=== PATIENT | female | born 1985 | race Caucasian/White ===

== ENCOUNTER 2017-12-25 18:38 | Emergency (ER) | payer BC ==
[2017-12-25] MEDS ORDERED: Diphtheria,Pertussis(Acell),Tetanus Vaccine 0.5 ML SDV IM ONE (19:19)
--- NOTE | 2017-12-25 19:50 | EDM.PDOC ---
ED HPI GENERAL MEDICAL PROBLEM - General Chief Complaint: General Stated Complaint: NEEDLE STICK Time Seen by Provider: 12/25/17 18:57 Source of Information: Reports: Patient History Limitations: Reports: No Limitations - History of Present Illness INITIAL COMMENTS - FREE TEXT/NARRATIVE: The patient presents with a needle stick to the right thumb. She was given a horse a [place] virus vaccine. She gave the injection and she was recapping the needle and she poked the tip of her right thumb. She is scheduled to get the tetanus vaccine at 30 weeks. She has no trouble with the baby. She has accidentally poked her hands before but because she was she wanted to get checked out. 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: - Past Surgical History Other HEENT Surgeries/Procedures: [place] teeth removal Social & Family History - Family History Family Medical History: Noncontributory - Tobacco Use Smoking Status *Q: Never Smoker - Recreational Drug Use Recreational Drug Use: No ED ROS GENERAL - Review of Systems Review Of Systems: See Below Constitutional: Reports: No Symptoms HEENT: Reports: No Symptoms Respiratory: Reports: No Symptoms Cardiovascular: Reports: No Symptoms Endocrine: Reports: No Symptoms GI/Abdominal: Reports: No Symptoms : Reports: No Symptoms Musculoskeletal: Reports: Other (Puncture wound to the right thumb) Skin: Reports: No Symptoms ED EXAM, GENERAL - Physical Exam Exam: See Below Exam Limited By: No Limitations General Appearance: Alert, No Apparent Distress Ears: Normal External Exam Nose: Normal Inspection Head: Atraumatic, Normocephalic Neck: Normal Inspection Respiratory/Chest: No Respiratory Distress Back Exam: Normal Inspection Extremities: Other (Puncture wound to the tip of her thumb) Course - Vital Signs Last Recorded V/S: Last Vital Signs Temp 97.7 F 12/25/17 18:48 Pulse 60 12/25/17 18:48 Resp 16 12/25/17 18:48 BP 124/77 12/25/17 18:48 Pulse Ox 98 12/25/17 18:48 - Orders/Labs/Meds Orders: Active Orders 24 hr Category Date Time Status Vaccines to be Administered [RC] PER UNIT ROUTINE Care 12/25/17 19:19 Active Meds: Medications Discontinued Medications Generic Name Dose Route Start Last Admin Trade Name Arnold PRN Reason Stop Dose Admin Diphtheria/Tetanus/Acell Pertussis 0.5 ml 12/25/17 19:19 12/25/17 19:28 Adacel IM 12/25/17 19:20 0.5 ml .ONCE ONE Administration - Re-Assessments/Exams Free Text/Narrative Re-Assessment/Exam: 12/25/17 19:46 I updated her tetanus. It appears the vaccine is a killed flavivirus chimera. I am not sure what other problems may come with it. I called poison control and they did not feel there was any concerns. I also called her local vet and her vet she uses for her horses down in [place] Dr Lamb and he had no concerns. I also talked with her OB doctor Dr Frausto and he had no concerns. heart tones were 144. I will discharge her home. Departure - Departure Time of Disposition: 19:50 Disposition: Home, Self-Care 01 Condition: Good Clinical Impression: Needle stick injury of finger Qualifiers: Encounter type: initial encounter Qualified Code(s): S61.239A - Puncture wound without foreign body of unspecified finger without damage to nail, initial encounter; W27.3XXA - Contact with needle (sewing), initial encounter - Discharge Information Referrals: Татьяна Grewal MD [Primary Care Provider] - Marquez Frausto MD [Physician] - Additional Instructions: Soak your thumb in warm soapy water 2 times per day and apply some antibiotic ointment after. Do this for 3 to 5 days. Please return if you notice any more redness, swelling, pain or drainage. Follow up with Dr Frausto. - My Orders Last 24 Hours: My Active Orders 12/25/17 19:19 Vaccines to be Administered [RC] PER UNIT ROUTINE - Assessment/Plan Last 24 Hours: My Active Orders 05/09/18 19:19 Vaccines to be Administered [RC] PER UNIT ROUTINE
== END 2017-12-25 20:00 | disposition home or self-care (01) ==
LOC: JD.ED 18:38
DX: S61.031A Puncture wound without foreign body of right thumb without damage to nail, initial encounter (principal); Z23 Encounter for immunization; W27.3XXA Contact with needle (sewing), initial encounter; Z79.899 Other long term (current) drug therapy
CPT/HCPCS: 90471; 90715; 99283; 99283-25

== ENCOUNTER 2018-04-02 07:04 | Inpatient (IN) | payer BC ==
--- NOTE | 2018-04-02 07:01 | PCM.LDHP ---
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
[2018-04-02] MEDS ORDERED: Ondansetron 4 MG/2 ML SDV IVPUSH PRN ×2 (08:15→14:12)
[2018-04-02] MEDS ORDERED: Oxytocin/Lactated Ringers 10 UNIT/1,000 ML BAG IV SCH ×2 (08:15→08:45)
[2018-04-02] MEDS ORDERED: Sodium Chloride 0.9% 10 ML Syringe FLUSH PRN (08:15)
[2018-04-02] MEDS ORDERED: Nalbuphine 20 MG/ML 1 ML Syringe IVPUSH PRN (08:15)
[2018-04-02] MEDS ORDERED: Ampicillin 2 GM in Sodium Chloride 0.9% 100 ML IV ONE (08:30)
[2018-04-02] MEDS: Lactated Ringers 1,000 ML IV SCH ×4 (08:38→17:00)
--- NOTE | 2018-04-02 13:08 | HP ---
DATE OF ADMISSION: 04/02/2018 ADMISSION DIAGNOSIS: 39 and 4/7th week intrauterine , elective induction of labor. HISTORY OF PRESENT ILLNESS: The patient is a 33-year-old, 1, para 0, white female with an MAT of 04/06/2018, placing her at 39 and 4/7th weeks gestational age, admitted for elective induction of labor. Procedure, risks, benefits, and alternatives of care including natural passage of tissue have been discussed with the patient. She appears understanding and wishes to proceed. GAS [place]OVER HISTORY: 1, para 0. MAT of 04/06/2018 as determined by certain last menstrual period occurring and starting on 06/30/2017, but supported by 4 ultrasounds done during the course of her care. She had menarche at age 13, cycles q.29 days with positive hCG on 08/01/2017. Her cycles are regular and she was not using any control at the time of conception. She denies any abnormal Pap smears or STDs in the past. Her course has been relatively unremarkable. She is planning on . She had an elevated 1-hour GTT but a normal 3-hour glucose tolerance test. She is desiring epidural in labor. She has had some problems with hemorrhoids, but these resolved. Her group B strep screen was positive.. Her [place] depression screen score at 20 weeks was 20. Tdap was done on 12/25/2017. course started on 09/10/2017 at 10 and 2/7th weeks. She was seen on a regular basis. Her weight gain was from 189.4 pounds to 209.4 pounds for 20 pounds increase. Vital signs are stable. Fundal height growth was appropriate. LABORATORY TESTING: In showed first laboratory test with A positive blood. Negative antibody screen. Hemoglobin is 13.2 g/dL. Platelets 289,000. Her Pap smear was negative. She is rubella immune. RPR is nonreactive. Urine culture was negative. Hepatitis B surface antigen HIV assays were both negative. Chlamydia and gonorrhea assays were both negative. Her second trimester laboratory testing showed a hemoglobin of 12.7 g/dL and platelets of 236,000. One-hour GTT was 134. Her 3-hour GTT was normal with 3 values as follows. Fasting blood sugar 80, 1-hour blood sugar 130, 2-hour blood sugar 108. She did have positive group B strep and is a candidate for group B strep prophylaxis in Labor and Delivery. ALLERGIES: None. CURRENT MEDICATIONS: 1. Hydrocortisone rectal cream 2.5% apply 3 times a day p.r.n. 2. vitamins 1 daily. PAST MEDICAL HISTORY: Depression treated with Paxil and Wellbutrin on and off. Actually reports more of an anxiety at this time. PAST SURGICAL HISTORY: [place] tooth extraction 2005. FAMILY HISTORY: Mother is alive and well. Does have adult onset diabetes and hypertension. Father is alive with macular degeneration. One brother with asthma and 1 half- sister who is alive and well. Maternal grandmother due to dementia. Maternal grandfather secondary to some type of cancer. Paternal grandmother with lung cancer history and paternal grandfather secondary to Alzheimer's. There is no significant history of , bleeding, blood clotting, or anesthesia problems in the family. SOCIAL HISTORY: The patient is , lives in [place]. 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 She does not use any significant amounts of alcohol, drugs, or tobacco. is Omar. REVIEW OF SYSTEMS: GENERAL: The patient has no concerns. Baby has been active. SKIN: Negative. RESPIRATORY/LUNGS: No shortness of breath or infectious symptoms. CARDIOVASCULAR: No chest pain or exercise intolerance. BREASTS: Changes associated with . The patient plans to breastfeed. GI: Negative. : Increased size of the uterus consistent with term . MUSCULOSKELETAL: Negative with exception of occasional edema in the lower extremities. NEUROLOGICAL: Negative. PHYSICAL EXAMINATION: GENERAL: This patient is a well-developed, well-nourished, pleasant female, stated age, in no acute distress. SKIN: Warm and dry without lesions. HEENT: Within normal limits. NECK: Within normal limits. BACK: Within normal limits. LUNGS: Clear with good breath sounds in all lung napier. BREASTS: Deferred and has been done at the first visit and found to be normal. ABDOMEN: Protuberant with with fundal height of 37+ cm. : Cervix is 1-2 cm, 75% effaced, soft, -3, mid position. EXTREMITIES: Normal with the exception of trace edema. NEUROLOGIC: Normal. ASSESSMENT: 1. 39 and 4/7th week intrauterine , admitted for elective induction of labor. 2. Group B strep positive status - candidate for group B strep prophylaxis with ampicillin per protocol. 3. Rubella immune. 4. Plans to breastfeed. 5. Okay with epidural in Labor and Delivery. PLAN: 1. Pitocin induction of labor with artificial rupture of membranes augmentation. Procedure, risks, benefits, alternatives of care including waiting for natural onset of labor all discussed with the patient. She appears to understand and wishes to proceed. 2. Epidural p.r.n. per the patient's desire. 3. Support decision. 4. Routine labor and delivery care. DARRION /[id number] JONATHAN
[2018-04-02] MEDS: Ampicillin 1 GM in Sodium Chloride 0.9% 100 ML IV SCH ×2 (14:00→18:10)
[2018-04-02] MEDS ORDERED: fentaNYL 100 MCG/2 ML SDV EPIDUR PRN (14:12)
[2018-04-02] MEDS ORDERED: ePHEDrine 50 MG/ML SDV IVPUSH PRN (14:12)
[2018-04-02] MEDS ORDERED: Bupivacaine/fentaNYL/NS 100 ML Bag EPIDUR SCH (14:15)
--- NOTE | 2018-04-02 15:11 | PCM.PREANE ---
Preanesthetic Assessment - Anesthesia/Transfusion/Family Hx Anesthesia History: Prior Anesthesia Without Reaction Family History of Anesthesia Reaction: No Transfusion History: No Prior Transfusion(s) Intubation History: Unknown - Review of Systems General: No Symptoms Pulmonary: No Symptoms Cardiovascular: No Symptoms Gastrointestinal: No Symptoms (GERD) Neurological: No Symptoms Other: Reports: Depression, Anxiety - Physical Assessment NPO Status Date: 04/02/18 NPO Status Time: 12:00 Pulse: 77 O2 Sat by Pulse Oximetry: 99 Respiratory Rate: 18 Blood Pressure: 124/79 Temperature: 36.7 C Vital Signs: Last Vital Signs Temp 36.7 C 04/02/18 08:15 Pulse 77 04/02/18 08:42 Resp 18 04/02/18 08:15 BP 124/79 04/02/18 08:42 Pulse Ox Height: 1.75 m Weight: 97.069 kg ASA Class: 2 Mental Status: Alert & Oriented x3 Airway Class: Mallampati = 2 Dentition: Reports: Normal Dentition, Caries Thyro-Mental Finger Breadths: 3 Mouth Opening Finger Breadths: 3 ROM/Head Extension: Full Lungs: Clear to Auscultation, Normal Respiratory Effort Cardiovascular: Regular Rate, Regular Rhythm, No Murmurs - Lab Values: Laboratory Last Values WBC 11.78 K/mm3 (3.98-10.04) H 04/02/18 08:45 RBC 4.10 M/mm3 (3.98-5.22) 04/02/18 08:45 Hgb 13.3 gm/L (11.2-15.7) 04/02/18 08:45 Hct 39.1 % (34.1-44.9) 04/02/18 08:45 MCV 95.4 fl (79.4-94.8) H 04/02/18 08:45 MCH 32.4 pg (25.6-32.2) H 04/02/18 08:45 MCHC 34.0 g/dl (32.2-35.5) 04/02/18 08:45 RDW Std Deviation 42.5 fL (36.4-46.3) 04/02/18 08:45 Plt Count 252 K/mm3 (182-369) 04/02/18 08:45 MPV 9.5 fl (9.4-12.3) 04/02/18 08:45 Neut % (Auto) 73.6 % (34.0-71.1) H 04/02/18 08:45 Lymph % (Auto) 15.0 % (19.3-51.7) L 04/02/18 08:45 [place] % (Auto) 10.4 % (4.7-12.5) 04/02/18 08:45 Eos % (Auto) 0.6 (0.7-5.8) L 04/02/18 08:45 Baso % (Auto) 0.1 % (0.1-1.2) 04/02/18 08:45 Neut # (Auto) 8.66 K/mm3 (1.56-6.13) H 04/02/18 08:45 Lymph # (Auto) 1.77 K/mm3 (1.18-3.74) 04/02/18 08:45 [place] # (Auto) 1.23 K/mm3 (0.24-0.36) H 04/02/18 08:45 Eos # (Auto) 0.07 K/mm3 (0.04-0.36) 04/02/18 08:45 Baso # (Auto) 0.01 K/mm3 (0.01-0.08) 04/02/18 08:45 RPR Non-reactive (NONREACTIVE) 04/02/18 08:45 Above labs reviewed and noted and within acceptable ranges to proceed with epidural. 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: - Past Surgical History Other HEENT Surgeries/Procedures: [place] teeth removal - SUBSTANCE USE Smoking Status *Q: Never Smoker Second Hand Smoke Exposure: No Recreational Drug Use History: No - HOME MEDS Home Medications: Home Meds [id number]/Iron Fumarate/FA/DSS [ 19 Tablet] 1 each PO DAILY 12/25/17 [ History] - CURRENT (IN HOUSE) MEDS Current Meds: Current Medications Ephedrine Sulfate (Ephedrine Sulfate) 5 mg IVPUSH ASDIRECTED PRN PRN Reason: Hypotension Fentanyl (Sublimaze) 100 mcg EPIDUR Q3H PRN PRN Reason: Pain Fentanyl/Bupivacaine HCl (Fentanyl/Bupivacaine/Ns 2 Mcg-0.125% 100 Ml) 100 ml EPIDUR ASDIRECTED EARL Ampicillin Sodium 1 gm/ Sodium (Chloride) 100 mls @ 200 mls/hr IV Q4H EARL Last Admin: 04/02/18 14:00 Dose: 200 mls/hr Lactated Ringer's (Ringers, Lactated) 1,000 mls @ 100 mls/hr IV ASDIRECTED EARL Last Admin: 04/02/18 08:38 Dose: 100 mls/hr Oxytocin/Lactated Ringer's (Pitocin In Lr 10 Units/1,000 Ml) 10 unit in 1,000 mls @ 500 mls/hr IV .CONTINUOUS EARL; Protocol Oxytocin/Lactated Ringer's (Pitocin In Lr 10 Units/1,000 Ml) 10 unit in 1,000 mls @ 12 mls/hr IV TITRATE EARL; Protocol Last Titration: 04/02/18 14:00 Dose: 11 munits/min, 66 mls/hr Nalbuphine HCl (Nubain) 10 mg IVPUSH Q2H PRN PRN Reason: pain Ondansetron HCl (Zofran) 4 mg IVPUSH Q4H PRN PRN Reason: Nausea/Vomiting Ondansetron HCl (Zofran) 4 mg IVPUSH ONETIME PRN PRN Reason: Nausea/Vomiting Sodium Chloride (Saline Flush) 10 ml FLUSH ASDIRECTED PRN PRN Reason: Keep Vein Open Discontinued Medications Ampicillin Sodium 2 gm/ Sodium (Chloride) 100 mls @ 200 mls/hr IV ONETIME ONE Stop: 04/02/18 08:59 Last Admin: 04/02/18 08:39 Dose: 200 mls/hr
[2018-04-02] MEDS ORDERED: Bupivacaine 0.25% 10 ML SDV ONE (22:00)
--- NOTE | 2018-04-02 23:11 | PCM.SN ---
- Free Text/Narrative Note: Delivery note: Chayo is a 33-year-old 1 now para 1001 was admitted at 39-4/7 weeks gestational age on the AM of 04/02/2018 for elective induction of labor. The patient's cervix initially was 2 cm dilated, soft, -3 station, cephalic presentation, mid position. She was started on Pitocin and slowly progressed to 2+ centimeters, -2 station and approximately 80% effacement at which time AROM was accomplished resulting in clear amniotic fluid. She slowly progressed to 5 cm and then more rapidly progressed to 10 cm. She received an epidural for labor and analgesia. She began pushing and eventually delivered a viable, olson, female infant in an occiput anterior position. The baby weighed 3360 g (7 pounds 6.5 ounces), length of 18.5 inches and Apgars of 8 and 9. Patient had a first-degree perineal laceration and some subtle bilabial abrasions on each labia minora. Not bleeding and revealed no anatomic architectural distortion. The first-degree perineal laceration was repaired with a [id number] suture of 3-0 Monocryl. The placenta delivered in a Giang presentation, appeared intact and complete. Reported per patient desire. Epidural analgesia was used for anesthesia. Estimated blood loss was 100 mL. Patient plans to breast-feed. Condition: Satisfactory.
[2018-04-03] MEDS ORDERED: Acetaminophen 325 MG Tab PO PRN (00:13)
[2018-04-03] MEDS ORDERED: Benzocaine/Menthol 20%-0.5% Spray 56 GM Canister TOP PRN (00:13)
[2018-04-03] MEDS ORDERED: Lanolin 100% Cream 7 GM Tube TOP PRN (00:13)
[2018-04-03] MEDS ORDERED: Witch Hazel Medicated Pads 100/Jar TOP PRN (00:13)
[2018-04-03] MEDS ORDERED: Docusate Sodium 100 MG Cap PO PRN (00:13)
[2018-04-03] MEDS: Ampicillin 1 GM in Sodium Chloride 0.9% 100 ML IV SCH (00:20)
[2018-04-03] MEDS: Ibuprofen 600 MG Tab PO PRN ×5 (01:30→22:25)
--- NOTE | 2018-04-03 07:37 | PCM48HPAN ---
Post Anesthesia Note - EVALUATION WITHIN 48HRS OF ANESTHETIC Vital Signs in Normal Range: Yes Patient Participated in Evaluation: Yes Respiratory Function Stable: Yes Airway Patent: Yes Cardiovascular Function Stable: Yes Hydration Status Stable: Yes Pain Control Satisfactory: Yes Nausea and Vomiting Control Satisfactory: Yes Mental Status Recovered: Yes Pulse Rate: 78 Resp Rate: 14 Temperature: 36.7 C Blood Pressure: 128/71 - COMMENTS/OBSERVATIONS Free Text/Narrative:: no anesthesia complications noted
[2018-04-03] MEDS: Prenatal Multivitamin with Calcium/Folic Acid/Iron Tab PO SCH (07:59)
--- NOTE | 2018-04-03 08:35 | PCM.SN ---
- Free Text/Narrative Note: note: Patient is doing well in the period. Minimal lochia, voiding well, ambulated without problems. Nursing without concerns. Patient is afebrile, vital signs are stable Abdomen is flat, soft, uterus is below the umbilicus and is firm and nontender. Legs are nontender. Assessment: recovery going well. Plan: Routine care. Patient be discharged home within the next 24- [address] Cruz to cover today. Dr. Holloway to cover tomorrow.
--- NOTE | 2018-04-04 10:15 | PCM.DCSUM1 ---
Discharge Summary - Hospital Course HPI Initial Comments: Chayo is a 33-year-old 1 now para 1001 was admitted at 39-4/7 weeks gestational age on the AM of 04/02/2018 for elective induction of labor. The patient's cervix initially was 2 cm dilated, soft, -3 station, cephalic presentation, mid position. She was started on Pitocin and slowly progressed to 2+ centimeters, -2 station and approximately 80% effacement at which time AROM was accomplished resulting in clear amniotic fluid. She slowly progressed to 5 cm and then more rapidly progressed to 10 cm. She received an epidural for labor and analgesia. She began pushing and eventually delivered a viable, olson, female infant in an occiput anterior position. The baby weighed 3360 g (7 pounds 6.5 ounces), length of 18.5 inches and Apgars of 8 and 9. Patient had a first-degree perineal laceration and some subtle bilabial abrasions on each labia minora. Not bleeding and revealed no anatomic architectural distortion. The first-degree perineal laceration was repaired with a [id number] suture of 3-0 Monocryl. The placenta delivered in a Giang presentation, appeared intact and complete. Reported per patient desire. Epidural analgesia was used for anesthesia. Estimated blood loss was 100 mL. Patient plans to breast-feed. Condition: Satisfactory. Brief History: Doing well today and requests discharge to home Diagnosis: Stroke: No - Discharge Data Discharge Date: 04/04/18 Discharge Disposition: Home, Self-Care 01 Condition: Good - Patient Summary/Data Hospital Course: Unremarkable. - Patient Instructions Diet: Usual Diet as Tolerated Activity: No Strenuous Activities Driving: May Drive Today Showering/Bathing: May Shower Wound/Incision Care: Keep Operative Site/Wound Site Clean and Dry Notify Provider of: Fever, Increased Pain, Swelling and Redness, Drainage, Nausea and/or Vomiting - Discharge Plan *PRESCRIPTION DRUG MONITORING PROGRAM REVIEWED*: No *COPY OF PRESCRIPTION DRUG MONITORING REPORT IN PATIENT AMANDEEP: No Home Medications: Home Meds [id number]/Iron Fumarate/FA/DSS [ 19 Tablet] 1 each PO DAILY 12/25/17 [ History] Patient Handouts: Home Care Instructions for Mom, Tips for a Good Latch Referrals: Marquez Frausto MD [Physician] - (2 weeks) - Discharge Summary/Plan Comment DC Time >30 min.: No - General Info Date of Service: 04/04/18 Subjective Update: Minimal bleeding, minimal pain. Mood excellent. EPDS pending Functional Status: Reports: Pain Controlled - Review of Systems General: Reports: No Symptoms HEENT: Reports: No Symptoms Pulmonary: Reports: No Symptoms Cardiovascular: Reports: No Symptoms Gastrointestinal: Reports: No Symptoms Genitourinary: Reports: No Symptoms Musculoskeletal: Reports: No Symptoms Skin: Reports: No Symptoms Neurological: Reports: No Symptoms Psychiatric: Reports: No Symptoms - Patient Data Vitals - Most Recent: Last Vital Signs Temp 36.8 C 04/04/18 08:02 Pulse 55 L 04/04/18 08:02 Resp 14 04/04/18 08:02 BP 111/68 04/04/18 08:02 Pulse Ox 99 04/04/18 08:02 Weight - Most Recent: 97.069 kg I&O - Last 24 hours: Intake & Output 04/03/18 04/04/18 04/04/18 22:59 06:59 14:59 Intake Total 0 Balance 0 Med Orders - Current: Current Medications Acetaminophen (Tylenol) 650 mg PO Q4H PRN PRN Reason: mild pain or fever Benzocaine/Menthol (Dermoplast Pain Relief [place]) 0 gm TOP ASDIRECTED PRN PRN Reason: Perineal Comfort Measure Last Admin: 04/03/18 01:31 Dose: 1 can Docusate Sodium (Colace) 100 mg PO BID PRN PRN Reason: Constipation Last Admin: 04/03/18 22:27 Dose: 100 mg Emollient Ointment (Lansinoh Hpa) 0 gm TOP ASDIRECTED PRN PRN Reason: Sore Nipples Ibuprofen (Motrin) 600 mg PO Q4H PRN PRN Reason: Mild pain or fever Last Admin: 04/03/18 22:25 Dose: 600 mg Prenat Multivit/Coamo/Iron/Folic Ac ( Plus Iron) 1 each PO DAILY EARL Last Admin: 04/03/18 07:59 Dose: 1 each Witch Calli (Tucks) 1 pad TOP ASDIRECTED PRN PRN Reason: Hemorrhoid pain Last Admin: 04/03/18 01:31 Dose: 1 can Discontinued Medications Bupivacaine HCl (Sensorcaine-Mpf 0.25%) 10 ml .ROUTE .STK-MED ONE Stop: 04/02/18 22:01 Ephedrine Sulfate (Ephedrine Sulfate) 5 mg IVPUSH ASDIRECTED PRN PRN Reason: Hypotension Fentanyl (Sublimaze) 100 mcg EPIDUR Q3H PRN PRN Reason: Pain Last Admin: 04/02/18 15:48 Dose: 100 mcg Fentanyl/Bupivacaine HCl (Fentanyl/Bupivacaine/Ns 2 Mcg-0.125% 100 Ml) 100 ml EPIDUR ASDIRECTED EARL Last Admin: 04/02/18 15:48 Dose: 100 ml Ampicillin Sodium 2 gm/ Sodium (Chloride) 100 mls @ 200 mls/hr IV ONETIME ONE Stop: 04/02/18 08:59 Last Admin: 04/02/18 08:39 Dose: 200 mls/hr Ampicillin Sodium 1 gm/ Sodium (Chloride) 100 mls @ 200 mls/hr IV Q4H EARL Last Admin: 04/03/18 00:20 Dose: Not Given Lactated Ringer's (Ringers, Lactated) 1,000 mls @ 100 mls/hr IV ASDIRECTED EARL Last Admin: 04/02/18 17:00 Dose: 999 mls/hr Oxytocin/Lactated Ringer's (Pitocin In Lr 10 Units/1,000 Ml) 10 unit in 1,000 mls @ 500 mls/hr IV .CONTINUOUS EARL; Protocol Oxytocin/Lactated Ringer's (Pitocin In Lr 10 Units/1,000 Ml) 10 unit in 1,000 mls @ 12 mls/hr IV TITRATE EARL; Protocol Last Titration: 04/02/18 22:45 Dose: 500 mls/hr Nalbuphine HCl (Nubain) 10 mg IVPUSH Q2H PRN PRN Reason: pain Ondansetron HCl (Zofran) 4 mg IVPUSH Q4H PRN PRN Reason: Nausea/Vomiting Ondansetron HCl (Zofran) 4 mg IVPUSH ONETIME PRN PRN Reason: Nausea/Vomiting Sodium Chloride (Saline Flush) 10 ml FLUSH ASDIRECTED PRN PRN Reason: Keep Vein Open - Exam General: Reports: Alert, Oriented HEENT: Reports: Pupils Equal, Pupils Reactive, EOMI, Mucous Membr. Moist/Balm Neck: Reports: Supple Lungs: Reports: Clear to Auscultation, Normal Respiratory Effort Cardiovascular: Reports: Regular Rate, Regular Rhythm GI/Abdominal Exam: Normal Bowel Sounds, Soft, Non-Tender, No Organomegaly, No Distention, No Abnormal Bruit Rectal (Female) Exam: Normal Exam, Normal Rectal Tone Back Exam: Reports: Normal Inspection, Full Range of Motion Extremities: Normal Inspection, Normal Range of Motion, Non-Tender, No Pedal Edema, Normal Capillary Refill Skin: Reports: Warm, Dry, Intact Wound/Incisions: Reports: Healing Well Neurological: Reports: No New Focal Deficit Psy/Mental Status: Reports: Alert, Normal Affect, Normal Mood
[2018-04-04] MEDS: Prenatal Multivitamin with Calcium/Folic Acid/Iron Tab PO SCH (10:40)
== END 2018-04-04 13:10 | disposition home or self-care (01) | DRG 560 ==
LOC: JD.OB 07:04 → OBSVTOIN 22:43 → JD.MS 22:44 → JD.OB 04-03 15:52
PROVIDERS: ADMIT Obstetrics & Gynecology; ATTEND Obstetrics & Gynecology
PROC: 10907ZC Drainage of Amniotic Fluid, Therapeutic from Products of Conception, Via Natural or Artificial Opening (ICD-10-PCS; principal; 2018-04-02)
PROC: 0HQ9XZZ Repair Perineum Skin, External Approach (ICD-10-PCS; principal; 2018-04-02)
PROC: 10E0XZZ Delivery of Products of Conception, External Approach (ICD-10-PCS; principal; 2018-04-02)
PROC: 3E033VJ Introduction of Other Hormone into Peripheral Vein, Percutaneous Approach (ICD-10-PCS; principal; 2018-04-02)
PROC: 3E0R3BZ Introduction of Anesthetic Agent into Spinal Canal, Percutaneous Approach (ICD-10-PCS; 2018-04-02)
PROC: 00HU33Z Insertion of Infusion Device into Spinal Canal, Percutaneous Approach (ICD-10-PCS; 2018-04-02)
DX: O99.344 Other mental disorders complicating childbirth (principal); O99.824 Streptococcus B carrier state complicating childbirth; F32.9 Major depressive disorder, single episode, unspecified; F41.9 Anxiety disorder, unspecified; Z3A.39 39 weeks gestation of pregnancy; Z37.0 Single live birth; O70.0 First degree perineal laceration during delivery
CPT/HCPCS: 36415; 51702; 59025; 59300; 59409; 85025; 85027; 86592; A9270-GY; J0290; J2590; J3010; J3490; J7030; J7120

== ENCOUNTER 2021-08-26 18:42 | Emergency (ER) | payer BC ==
--- NOTE | 2021-08-26 19:25 | EDM.PDOC ---
ED HPI GENERAL MEDICAL PROBLEM - General Chief Complaint: [employer] Problem Stated Complaint: 11 WKS PRG BLEEDING Time Seen by Provider: 08/26/21 19:04 Source of Information: Reports: Patient, Family () History Limitations: Reports: No Limitations - History of Present Illness INITIAL COMMENTS - FREE TEXT/NARRATIVE: Mrs. Aguayo is a very pleasant 36-year-old woman who now presents the ED with vaginal bleeding and cramps associated with a first trimester . , LMP 06/07/2021 = 11w 3d by dates, MAT 03/14/2022. Obstetric ultrasound on 08/08/2021 reportedly gave a gestational age of 8w 6d, MAT 03/14/2022. No issues with this until yesterday morning, 08/25/2020, when the patient had some painless spotting following sexual intercourse. It essentially resolved, however, this morning, it returned and was worse. Over the course of the day, it continued to get heavier, then, around 17:00 this evening, she developed pelvic cramps and a lower back ache, the quantity of bleeding increased, and she passed some tissue. Because she has primarily been on the toilet, she is unable to estimate the quantity of bleeding in terms of pads per hour. Review of prior labs finds that the patient's blood type is A-Pos. At triage, the patient was found to be hemodynamically stable, afebrile, saturating 100% on room air. She appears to be relatively comfortable, in no acute distress. Prior to yesterday morning, the patient denies having a recent fever, chills, sore throat, ear pain, nasal or sinus congestion, cough, dyspnea, chest pain, palpitations, nausea, vomiting, constipation, diarrhea, abdominal pain, urinary symptoms, recent weight gain or weight loss, recent bloody bowel movements or black bowel movements, recent joint aches, headaches, or rashes. The patient does not have a PCP. Her Power System Operator is Dr. Marquez Frausto. She has not received a COVID vaccination, although she did receive an influenza vaccination this season. Back Pain Score (Numeric/FACES): 6 - Related Data Allergies Allergy/AdvReac Type Severity Reaction Status Date / Time No Known Allergies Allergy Verified 08/26/21 18:54 Home Meds: Home Meds Prenat 115/Iron Fum/Folic/Dss [ 19 Tablet] 1 each PO DAILY 12/25/17 [History] Past Medical History : 2 Para: 1 Other [employer] History: g 1 p 1 Psychiatric History: Reports: Anxiety (untreated), Depression (untreated) - Past Surgical History HEENT Surgical History: Reports: Oral Surgery (dental extractions) Social & Family History - Tobacco Use Tobacco Use Status *Q: Never Tobacco User Second Hand Smoke Exposure: No - Caffeine Use Caffeine Use: Reports: Coffee - Alcohol Use Alcohol Use History: Yes Alcohol Use Frequency: Socially (when not ) - Recreational Drug Use Recreational Drug Use: No - Living Situation & Occupation Living situation: Reports: , with Spouse 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 ED EXAM - Physical Exam Exam: See Below Exam Limited By: No Limitations General Appearance: Alert, WD/WN, No Apparent Distress Eye Exam: Bilateral Eye: EOMI, Normal Inspection Ears: Normal External Exam, Hearing Grossly Normal Nose: Normal Inspection Throat/Mouth: Normal Inspection, Normal Lips, Normal Voice, No Airway Compromise Head: Atraumatic, Normocephalic Neck: Normal Inspection, Full Range of Motion Respiratory/Chest: No Respiratory Distress, Lungs Clear, Normal Breath Sounds, No Accessory Muscle Use, Chest Non-Tender Cardiovascular: Normal Peripheral Pulses, Regular Rate, Rhythm, No Edema, No Gallop, No JVD, No Murmur, No Rub GI/Abdominal Exam: Normal Bowel Sounds, Soft, No Organomegaly, No Distention, No Abnormal Bruit, No Mass, Tender (lower abdomen, especially suprapubically) (Female) Exam: Cervical Dilatation (cervical os is open), Other (Blood in vagina, but no active bleeding at the time of exam). No: Cervical Lesions, Vaginal Lesions Back Exam: Normal Inspection, Full Range of Motion, NT Extremities: Normal Inspection, Normal Range of Motion, No Pedal Edema, Normal Capillary Refill Neurological: Alert, Oriented, Normal Cognition, No Motor/Sensory Deficits Psychiatric: Normal Affect Skin Exam: Warm, Dry, Intact, Normal Color, No Rash Course - Vital Signs Last Recorded V/S: Last Vital Signs Temp 36.4 C 08/26/21 18:52 Pulse 87 08/26/21 18:52 Resp 15 08/26/21 18:52 BP 138/78 08/26/21 18:52 Pulse Ox 100 08/26/21 18:52 Orthostatic Blood Pressure [ 102/64 Standing] Orthostatic Blood Pressure [ 111/49 Supine] - Orders/Labs/Meds Orders: Active Orders 24 hr Category Date Time Status Orthostatic Vital Signs [RC] STAT Care 08/26/21 19:21 Active Orthostatic Vital Signs [RC] STAT Care 08/26/21 19:57 Active Pelvic Exam, Set Up [RC] ASDIRECTED Care 08/26/21 19:40 Active OB Transvaginal [US] Stat Exams 08/26/21 19:21 Taken Labs: Laboratory Tests 08/26/21 08/26/21 Range/Units 18:56 18:56 Hgb 13.6 (11.2-15.7) gm/dl Hct 40.1 (34.1-44.9) % HCG, Quant 3844.0 mIU/mL Meds: Medications Discontinued Medications Generic Name Dose Route Start Last Admin Trade Name Arnold PRN Reason Stop Dose Admin Sodium Chloride 1,000 mls @ 999 mls/hr 08/26/21 19:57 08/26/21 20:04 Normal Saline IV 08/26/21 20:57 999 mls/hr ONETIME ONE Administration - Re-Assessments/Exams Free Text/Narrative Re-Assessment/Exam: 08/26/21 19:23 If the patient is in fact passing tissue, she is likely suffering a spontaneous . Her blood type is A-Pos. I have ordered orthostatics, and H/H, quantitative hCG, and an obstetric ultrasound. 08/26/21 19:53 Prior to undergoing a pelvic examination, the patient had been in the bathroom and passed some tissue. On examination, it appears to be a placenta. I am unable to say whether or not it is complete or not. I did not find any tissue, however, the patient mentioned that she had been passing tissue earlier tonight. On pelvic examination, the patient's cervical os is open, with minimal bleeding at this time. No tissue seen in the cervical canal. 08/26/21 20:29 The patient's quantitative hCG is only 3844. 08/26/21 22:08 Following 1 L of IV fluid, the patient is no longer orthostatic. 08/26/21 22:40 Transvaginal ultrasound is read by [facility] as "No evidence for intrauterine or extrauterine gestation." 08/26/21 22:[address] Ferraro at 22:42. She agreed that at this time there is nothing else that needs to be done. 08/26/21 22:46 Test results and my conversation with Dr. Ferraro discussed with the patient. I will have her contact the office of Dr. Frausto on Saturday. She should expect several days of diminishing vaginal bleeding, but return to the ED if she starts having a significant amount of bleeding or some other concerning change in her condition. Departure - Departure Time of Disposition: 22:48 Disposition: Home, Self-Care 01 Condition: Good Clinical Impression: Spontaneous - Discharge Information *PRESCRIPTION DRUG MONITORING PROGRAM REVIEWED*: Not Applicable *COPY OF PRESCRIPTION DRUG MONITORING REPORT IN PATIENT AMANDEEP: Not Applicable Referrals: Marquez Frausto MD [Primary Care Provider] - Forms: ED Department Discharge Additional Instructions: You were seen in the emergency room after developing pelvic cramps, lower back pain, and vaginal bleeding with passage of tissue in the setting of a first trimester . Work-up in the ER included positional blood pressure checks, some blood work, and an obstetric ultrasound. Your blood pressure dropped excessively between lying and standing, a condition known as orthostasis. You were given 1 L of IV fluid in the ER, and your orthostasis resolved. Your hemoglobin/hematocrit level were within normal limits at 13.6/40.1, therefore blood transfusion was not needed. The obstetric ultrasound confirmed that you suffered a complete miscarriage. Your case was discussed with the Power System Operator on-call, Dr. Chetna Ferraro, who confirmed that, from a medical standpoint, nothing further needs to be done. We recommend that you notify the office of your Power System Operator, Dr. Marquez Frausto, on Saturday. You should expect to have a diminishing amount of vaginal bleeding over the next several days. If you develop significant vaginal bleeding, or any other concerning symptom, please do not hesitate to return to the ER for reevaluation. Sepsis Event Note (ED) - Focused Exam Vital Signs: Vital Signs Temp Pulse Resp BP Pulse Ox 08/26/21 18:52 36.4 C 87 15 138/78 100 - My Orders Last 24 Hours: My Active Orders 08/26/21 19:21 Orthostatic Vital Signs [RC] STAT OB Transvaginal [US] Stat 08/26/21 19:40 Pelvic Exam, Set Up [RC] ASDIRECTED 08/26/21 19:57 Orthostatic Vital Signs [RC] STAT - Assessment/Plan Last 24 Hours: My Active Orders 08/26/21 19:21 Orthostatic Vital Signs [RC] STAT OB Transvaginal [US] Stat 08/26/21 19:40 Pelvic Exam, Set Up [RC] ASDIRECTED 08/26/21 19:57 Orthostatic Vital Signs [RC] STAT
[2021-08-26] MEDS ORDERED: Sodium Chloride 0.9% 1,000 ML IV ONE (19:57)
--- NOTE | 2021-08-28 09:09 | US ---
EXAM: US OB TRANSVAGINAL LOCATION: [facility] [employer] DATE/TIME: 08/26/2021 8:18 PM INDICATION: Pelvic pain while . Concern for spontaneous . COMPARISON: None. TECHNIQUE: Transabdominal scans were performed. Endovaginal ultrasound was performed to better visualize the embryo. FINDINGS: UTERUS: Retroverted measuring 9.7 x 5.1 x 6.8 cm. Homogeneous myometrium. ENDOMETRIUM: Fairly homogeneous with normal thickness of 13 mm. No intrauterine gestational sac or embryo visualized. RIGHT OVARY: Normal. LEFT OVARY: Normal. No adnexal mass or significant free pelvic fluid. IMPRESSION: No evidence for intrauterine or extrauterine gestation. SIGNED BY: Gustabo Padgett MD 08/26/2021 9:[address] [facility]
== END 2021-08-26 22:58 | disposition home or self-care (01) ==
LOC: JD.ED 18:42
DX: O03.9 Complete or unspecified spontaneous abortion without complication (principal)
CPT/HCPCS: 36415; 76817; 84702; 85014; 85018; 99284; J7030

== ENCOUNTER 2022-08-15 02:32 | Inpatient (IN) | payer BC ==
[2022-08-15] MEDS ORDERED: Nalbuphine 10 MG/0.5 ML Syringe IVPUSH PRN (04:25)
[2022-08-15] MEDS ORDERED: Ampicillin 2 GM in Sodium Chloride 0.9% 100 ML IV ONE (04:25)
[2022-08-15] MEDS ORDERED: Lidocaine 1% 50 ML MDV INJECT ONE (04:25)
[2022-08-15] MEDS ORDERED: Sodium Chloride 0.9% 10 ML Syringe FLUSH PRN (04:25)
[2022-08-15] MEDS ORDERED: Oxytocin/Lactated Ringers 10 UNIT/1,000 ML BAG IV SCH (04:30)
[2022-08-15] MEDS: Lactated Ringers 1,000 ML IV SCH ×2 (04:30→05:54)
[2022-08-15] MEDS ORDERED: diphenhydrAMINE 50 MG/ML SDV IVPUSH PRN (05:02)
[2022-08-15] MEDS ORDERED: Bupivacaine/fentaNYL/NS 100 ML Bag EPIDUR PRN (05:02)
[2022-08-15] MEDS ORDERED: ePHEDrine 50 MG/ML SDV IVPUSH PRN (05:02)
[2022-08-15] MEDS ORDERED: Ampicillin 1 GM in Sodium Chloride 0.9% 100 ML IV SCH (08:30)
[2022-08-15] MEDS ORDERED: Sodium Chloride 0.9% 10 ML Syringe FLUSH SCH (09:00)
[2022-08-15] MEDS ORDERED: Benzocaine/Menthol 20%-0.5% Spray 78 GM Cannister TOP PRN (11:41)
[2022-08-15] MEDS ORDERED: Witch Hazel Medicated Pads 40/Jar TOP PRN (11:41)
[2022-08-15] MEDS ORDERED: Acetaminophen 325 MG Tab PO PRN (11:41)
[2022-08-16] MEDS: Ibuprofen 600 MG Tab PO PRN ×3 (00:44→20:33)
[2022-08-16] MEDS: Prenatal Multivitamin with Calcium/Folic Acid/Iron Tab PO SCH (09:52)
[2022-08-16] MEDS: Docusate Sodium 100 MG Cap PO PRN (20:33)
[2022-08-17] MEDS: Docusate Sodium 100 MG Cap PO PRN (09:06)
[2022-08-17] MEDS: Prenatal Multivitamin with Calcium/Folic Acid/Iron Tab PO SCH (09:06)
== END 2022-08-17 11:25 | disposition home or self-care (01) | DRG 560 ==
LOC: JD.OBCHECK 02:32 → JD.OB 02:35 → JD.OBCHECK 04:24 → JD.OB 04:25 → OBSVTOIN 09:55
PROVIDERS: ADMIT Obstetrics & Gynecology; ATTEND Obstetrics & Gynecology
PROC: 10E0XZZ Delivery of Products of Conception, External Approach (ICD-10-PCS; principal; 2022-08-15)
PROC: 10907ZC Drainage of Amniotic Fluid, Therapeutic from Products of Conception, Via Natural or Artificial Opening (ICD-10-PCS; 2022-08-15)
PROC: 3E0R3BZ Introduction of Anesthetic Agent into Spinal Canal, Percutaneous Approach (ICD-10-PCS; 2022-08-15)
PROC: 00HU33Z Insertion of Infusion Device into Spinal Canal, Percutaneous Approach (ICD-10-PCS; 2022-08-15)
DX: O99.824 Streptococcus B carrier state complicating childbirth (principal); Z3A.38 38 weeks gestation of pregnancy; Z37.0 Single live birth
CPT/HCPCS: 01967; 36415; 59025; 59409; 85025; 86592; 86850; 86900; 86901; A9270-GY; J0290; J7120